=== PATIENT | male | born 1950 | race Caucasian/White ===

== ENCOUNTER 2023-03-19 08:58 | Day surgery (SDC) | payer OTHER, SELFPAY ==
[2023-03-19 09:40] VITALS: BMI 35.7
[2023-03-19 09:52] VITALS: BP 147/84; PULSE 65; RESP 17; TEMP 36.1; O2SAT 97
[2023-03-19 09:59] VITALS: BMI 32.6
[2023-03-19] MEDS: Lactated Ringers 1,000 ML 100 ML IVCONT (10:08)
--- NOTE | 2023-03-19 10:11 | P.CONAN_ITS ---
HPI - Anesthesia Eval Consult details Narrative: Colonoscopy [facility] Past Medical History Medical History (Updated 03/18/23 @ 14:25 by Lucinda Clay, RN) Asthma History of COVID-19 HTN (hypertension) Family History Family history of problems with anesthesia: No Surgical History Surgical History (Updated 03/19/23 @ 09:54 by Belkis Camargo RN) H/O colonoscopy Hx of carpal tunnel repair Hx of shoulder surgery History of Problems with Anesthesia: No Social History Social History Patient Tobacco Use Status: Former Tobacco user Are you DNR?: No Advance Directives: No Advance Directives Information Provided: Yes Meds Allergies Allergy/AdvReac Type Severity Reaction Status Date / Time codeine Allergy Unknown Verified 03/18/23 14:24 Active Medications: Current Medications Albuterol Sulfate (Albuterol Sulfate (0.083%) 2.5 Mg/3 Ml Vial.Neb) 2.5 mg INHALE ONCE PRN PRN Reason: Shortness of Breath/Wheezing Lactated Ringer's (Lr) 1,000 mls @ 100 mls/hr IVCONT .Q10H JOSE Last Admin: 03/19/23 10:08 Dose: 100 mls/hr Home Medications Medication Instructions Recorded Confirmed Last Taken Type atenolol 25 mg tablet 25 mg PO DAILY 03/18/23 03/18/23 03/19/23 History fluticasone propionate 230 2 puff inhalation BID 03/18/23 03/18/23 Unknown History mcg-salmeterol 21 mcg/actuation HFA inhaler (Advair HFA) Exam Exam Date and Time: March 19, 2023 1011 Height,Weight and Vital Signs: Height 5 ft 9 in Weight 100.244 kg Last Vital Signs Temp 97 F 03/19/23 09:52 Pulse 65 03/19/23 09:52 Resp 17 03/19/23 09:52 BP 147/84 H 03/19/23 09:52 Pulse Ox 97 03/19/23 09:52 O2 Del Method Room Air 03/19/23 09:52 Airway Mallampati Class: II TM Dist: >3cm Neck ROM: Limited Heart: rrr Lungs: cta Assessment and Plan Assessment Anesthesia Assessment: Anesthesia Plan Discussed and Chart Reviewed Final Anesthetic Review Family History of Problems with Anesthesia: No History of Problems with Anesthesia: No NPO: Yes ASA Class: II Final Preanesthetic Review: No Changes in Pt Med Stat, Meds/Allgs Chart Reviewed, Consent Obtained/Reviewed and Anes Risks/Benef Reviewed Patient Risk: Low Procedure Risk: Low Anesthetic Plan Anesthetic Plan: MAC: and Agree w/ Assess. and Plan Disposition: Standard PACU
--- NOTE | 2023-03-19 11:31 | MHC.SHP ---
Pre-Procedural Eval Section A Date of Service: 03/19/23 Section B Chief Complaint: Encounter for screening for malignant neoplasm of Details of Present Illness: see h&p no changes Relevant Family History (Specify if Yes): No Relevant Social History: None Present Medications: see Short Stay Collaborative assessment Medical History: No relevant PMH History of Previous Operations: No relevant previous surgery Allergies: Allergies Allergy/AdvReac Type Severity Reaction Status Date / Time codeine Allergy Unknown Verified 03/18/23 14:24 Review of Systems Sugical H&P ROS: Negative: Constitution, Cardiovascular, Respiratory, Neurological, Psychiatric, Hem-Onc, Allergic/Immunologic, Gastrointestinal, Genitourinary, Musculoskeletal, Integumentary, Endocrine and Eyes/Ears/Nose/Throat Exam Surgical H&P Exam: Normal: HEENT, Normal: Heart, Normal: Lungs, Normal: Extremities, Normal: Abdomen, Normal: Skin and Normal: Neurological Plan Diagnosis/Plan: Unchanged I have reviewed the history and physical and performed a pertinent physical examination on my patient. No changes have occurred unless specified. Time Spent With Patient Time: Total time managing care of this patient today ____ minutes.
--- NOTE | 2023-03-19 11:32 | PM.OP ---
Brief Operative Note Date of Service: 03/19/23 Pre-op diagnosis: screening Post-op diagnosis: same Procedure: colonowcopy Surgeon: Devin Fuchs Anesthesia: MAC and other Was an Middleware Consultant used for this Procedure?: No Estimated blood loss (mL): 0 Pathology: none sent Condition: stable Disposition: PACU
[2023-03-19 11:36] VITALS: BP 110/76; PULSE 64; RESP 18; TEMP 36.6; O2SAT 95
[2023-03-19 11:51] VITALS: BP 147/93; PULSE 57; RESP 16; TEMP 36.6; O2SAT 95
--- NOTE | 2023-03-19 12:05 | OP_ITS ---
DATE OF SERVICE: 03/19/2023 SURGEON: Devin Fuchs MD INDICATIONS: Colon cancer screening. PREOPERATIVE DIAGNOSIS: POSTOPERATIVE DIAGNOSIS: PROCEDURE PERFORMED: Colonoscopy to the terminal ileum. ESTIMATED BLOOD LOSS: COMPLICATIONS: ANESTHESIA: Monitored anesthesia care. ASSISTANTS: SPECIMENS: DESCRIPTION OF PROCEDURE: A history and physical was performed. The risks and benefits of the procedure were explained to the patient. Informed consent was obtained. The patient was placed in the left lateral decubitus position. A digital rectal exam was performed and was found to be normal. The Olympus pediatric video colonoscope was introduced into the rectum and advanced to the cecum. The cecum was identified by transillumination, palpation, and identification of ileocecal valve. Examination was performed. The scope was removed. He tolerated the procedure well and was returned to the recovery area in stable condition. FINDINGS: The terminal ileum was examined and appeared normal. The visualized colonic mucosa was within normal limits without evidence of masses or ulcers. No polyps were identified. The quality of the prep was good. There was mild sigmoid diverticulosis. Retroflexed examination showed internal hemorrhoids. IMPRESSION: Normal colonoscopy. RECOMMENDATION: 1. Follow up as needed. 2. Repeat colonoscopy is recommended in 10 years for average risk individuals. This is optional based on the patient's age. MD MOUNIKA Ramírez/MANUEL / [id number]
== END 2023-03-19 12:15 | disposition home or self-care (01) ==
PROVIDERS: PCP Obstetrics & Gynecology Obstetrics; Visit Provider Internal Medicine Gastroenterology
PROC: 0DJD8ZZ Inspection of Lower Intestinal Tract, Via Natural or Artificial Opening Endoscopic (ICD-10-PCS; CPT 45378; principal; 2023-03-19 10:40)
DX: Z12.11 Encounter for screening for malignant neoplasm of colon (principal); Z86.010 Personal history of colon polyps; K57.30 Diverticulosis of large intestine without perforation or abscess without bleeding; K64.8 Other hemorrhoids; I10 Essential (primary) hypertension; J45.909 Unspecified asthma, uncomplicated; Z79.51 Long term (current) use of inhaled steroids; Z79.899 Other long term (current) drug therapy; Z87.891 Personal history of nicotine dependence; Z86.16 Personal history of COVID-19
CPT/HCPCS: 45378